=== PATIENT | female | born 1980 | race Two or more races ===

== ENCOUNTER 2017-04-16 21:29 | Emergency (ER) | payer MEDICAID ==
[~2017-04-16] VITALS: Ht 165.1 cm; Wt 88.7 kg
[~2017-04-16 21:29] MED LIST: DIPH25CA83 PO
[2017-04-16] MEDS ORDERED: DOXY100C43 PO (23:37)
[2017-04-16 23:50] VITALS: BP 144/74
== END 2017-04-16 23:52 | disposition home or self-care (01) ==
LOC: ER 21:29
DX: L03.116 Cellulitis of left lower limb (principal); F17.200 Nicotine dependence, unspecified, uncomplicated; Z79.899 Other long term (current) drug therapy
CPT/HCPCS: 93971; 99284

== ENCOUNTER 2017-07-04 14:08 | Emergency (ER) | payer OTHER, MEDICAID ==
[~2017-07-04] VITALS: Ht 165.1 cm; Wt 86.0 kg
[2017-07-04 15:00] VITALS: BP 120/62
== END 2017-07-04 15:25 | disposition home or self-care (01) ==
LOC: ER 14:08
DX: S39.012A Strain of muscle, fascia and tendon of lower back, initial encounter (principal); F17.200 Nicotine dependence, unspecified, uncomplicated; Z98.890 Other specified postprocedural states; V29.9XXA Motorcycle rider (driver) (passenger) injured in unspecified traffic accident, initial encounter; Y93.89 Activity, other specified; Y92.89 Other specified places as the place of occurrence of the external cause; Y99.8 Other external cause status
CPT/HCPCS: 72100; 99284

== ENCOUNTER 2017-12-09 23:02 | Emergency (ER) | payer MEDICAID ==
[~2017-12-09] VITALS: Ht 165.1 cm; Wt 76.0 kg
[~2017-12-09 23:02] MED LIST changes: +GUAI1TBM19 PO
[2017-12-09 23:44] LABS: BASOPHILS % (AUTO) 0.3 % (0-1); EOSINOPHILS # (AUTO) 0.2 X10'3 (0-0.9); EOSINOPHILS % (AUTO) 1.5 % (0-6); HEMATOCRIT 40.3 % (35.0-45.0); HEMOGLOBIN 13.2 g/dl (12.0-16.0); LYMPHOCYTES # (AUTO) 1.1 X10'3 (1.1-4.8); LYMPHOCYTES % (AUTO) 10.5 % (21-51); MEAN CORPUSCULAR HEMOGLOBIN 26.2 PG (27.0-31.0); MEAN CORPUSCULAR HGB CONC 32.6 % (33.0-36.5); MEAN CORPUSCULAR VOLUME 80.4 FL (78-98); MEAN PLATELET VOLUME 8.3 FL (7.4-10.4); MONOCYTES # (AUTO) 0.5 X10'3 (0-0.9); MONOCYTES % (AUTO) 4.6 % (2-12); NEUTROPHILS # (AUTO) 8.9 X10'3 (1.8-7.7); NEUTROPHILS % (AUTO) 83.1 % (42-75); PLATELET COUNT 254 X10'3 (140-440); RED BLOOD COUNT 5.02 X10'6 (4.20-5.60); RED CELL DISTRIBUTION WIDTH 14.1 % (11.5-14.5); WHITE BLOOD COUNT 10.8 X10'3 (4.5-11.0)
[2017-12-09 23:54] LABS: ALANINE AMINOTRANSFERASE 17 U/L (12-78); ALBUMIN 3.4 G/DL (3.4-5.0); ALBUMIN/GLOBULIN RATIO 0.8 (1.1-1.5); ALKALINE PHOSPHATASE 69 IU/L (46-116); ANION GAP 7 (8-16); ASPARTATE AMINO TRANSFERASE 13 U/L (10-37); BILIRUBIN,TOTAL 0.3 MG/DL (0.1-1.0); BLOOD UREA NITROGEN 16 MG/DL (7-18); CALCIUM 8.3 MG/DL (8.5-10.1); CHLORIDE 104 MMOL/L (99-107); CREATININE 0.89 MG/DL (0.40-0.90); GLUCOSE 106 MG/DL (70-104); POTASSIUM 3.9 MMOL/L (3.5-5.1); SODIUM 138 MMOL/L (135-145); TOTAL CARBON DIOXIDE 27.4 MMOL/L (24-32); TOTAL PROTEIN 7.5 G/DL (6.4-8.2); eGFR 71 ML/MIN
[2017-12-09 23:55] LABS: PROTHROMBIN TIME 9.9 SECONDS (9.0-12.0)
[2017-12-09] MEDS ORDERED: ondansetron/PF 4mg/2ml inj IV ONE (23:55)
[2017-12-09] MEDS ORDERED: morphine 4 MG/ML inj SYRINge IV PRN (23:55)
[2017-12-09] MEDS ORDERED: ketorolac trometh. 30mg/ml inj. IV ONE (23:55)
[2017-12-09] MEDS ORDERED: normal saline 1000ML IV soln IVB ONE (23:55)
[2017-12-10 00:27] LABS: LIPASE 102 U/L (73-393)
[2017-12-10] MEDS ORDERED: proCHLORperazine 10 MG/2 ml inj IV ONE (01:35)
[2017-12-10] MEDS ORDERED: morphine 4 MG/ML inj SYRINge IV PRN (01:35)
[2017-12-10] MEDS ORDERED: PROC-8 PO (02:09)
[2017-12-10 02:12] VITALS: BP 132/74
== END 2017-12-10 02:15 | disposition home or self-care (01) ==
LOC: ER 23:03
DX: R10.84 Generalized abdominal pain (principal); R11.2 Nausea with vomiting, unspecified; R19.7 Diarrhea, unspecified; Z79.899 Other long term (current) drug therapy
CPT/HCPCS: 36415; 80053; 83690; 85025; 85610; 96361; 96374; 96375; 99284; J0780; J1885; J2405; J7030; J2270

== ENCOUNTER 2023-05-09 21:38 | Emergency (ER) | payer MEDICAID ==
[~2023-05-09] VITALS: Ht 165.1 cm; Wt 84.1 kg
[~2023-05-09 21:38] MED LIST changes: +PROC-8 PO
[2023-05-09 21:45] VITALS: BP 161/110; PULSE 88; RESP 16; TEMP 98; O2SAT 98
[2023-05-09] MEDS ORDERED: MOXI3DRO25 RIGHTEYE (22:03)
== END 2023-05-09 22:13 | disposition home or self-care (01) ==
LOC: ER 21:39
DX: H10.9 Unspecified conjunctivitis (principal); H02.842 Edema of right lower eyelid
CPT/HCPCS: 99283

== ENCOUNTER 2023-07-26 05:56 | Emergency (ER) | payer MEDICAID, OTHER ==
[~2023-07-26] VITALS: Ht 160 cm; Wt 93.0 kg
[2023-07-26 06:08] VITALS: BP 205/87; PULSE 64; RESP 16; TEMP 98.3; O2SAT 100
[2023-07-26] MEDS ORDERED: CefTRIAXone 2gm/D5W 50ml BAG 50 ML IV ONE (07:55)
[2023-07-26] MEDS: acetaminophen 325mg tablet PO STA (08:18)
[2023-07-26] MEDS: dexamethasone 4mg tablet PO ONE (08:18)
[2023-07-26] MEDS: amox tr/potassium clavulanate 875/125mg TAB PO ONE (08:18)
[2023-07-26] MEDS ORDERED: AMOX-580 PO (08:20)
[2023-07-26] MEDS ORDERED: HYDR-3965 PO (08:20)
== END 2023-07-26 08:35 | disposition home or self-care (01) ==
LOC: ER 05:56
DX: K04.7 Periapical abscess without sinus (principal); K02.9 Dental caries, unspecified; K08.89 Other specified disorders of teeth and supporting structures; Z98.51 Tubal ligation status
CPT/HCPCS: 99284

== ENCOUNTER 2024-04-13 16:22 | Emergency (ER) | payer SELFPAY | END 2024-04-13 17:04 | disposition left against medical advice (07) | LOC: ER 16:23 | DX: H57.10 Ocular pain, unspecified eye (principal); Z53.21 Procedure and treatment not carried out due to patient leaving prior to being seen by health care provider ==

== ENCOUNTER 2024-04-13 20:20 | Emergency (ER) | payer SELFPAY ==
[~2024-04-13] VITALS: Ht 165.1 cm; Wt 82.8 kg
[2024-04-13 20:38] VITALS: BP 198/95; PULSE 84; RESP 18; TEMP 98.4; O2SAT 99
== END 2024-04-13 21:44 | disposition left against medical advice (07) ==
LOC: ER 20:20
DX: H57.13 Ocular pain, bilateral (principal); Z53.21 Procedure and treatment not carried out due to patient leaving prior to being seen by health care provider

== ENCOUNTER 2024-05-18 13:26 | Emergency (ER) | payer SELFPAY ==
[~2024-05-18] VITALS: Ht 165.1 cm; Wt 86.4 kg
[2024-05-18 13:28] VITALS: PULSE 79
[2024-05-18 14:01] VITALS: BP 193/97; RESP 16; TEMP 97.7; O2SAT 97
[2024-05-18] MEDS ORDERED: AMOX-117 PO (14:50)
== END 2024-05-18 15:22 | disposition home or self-care (01) ==
LOC: ER 13:26
DX: K04.7 Periapical abscess without sinus (principal); I10 Essential (primary) hypertension; Z98.51 Tubal ligation status; Z98.890 Other specified postprocedural states
CPT/HCPCS: 99283

== ENCOUNTER 2024-08-13 19:16 | Emergency (ER) | payer SELFPAY ==
[~2024-08-13] VITALS: Ht 162.6 cm; Wt 87.0 kg
--- NOTE | 2024-08-13 19:19 | Physician Documentation ---
History of Present Illness ~ Stated Complaint: GEN ILLNESS Time Seen by MD: 19:18 Primary Medical Doctor: NO PCP Source: patient, EMS, EMS notes reviewed Mode of Arrival: EMS Exam Limitations: no limitations HPI Chief Complaint: Nausea vomiting and abdominal pain Caveat: None Independent Historians: Paramedics History of Present Illness: Patient is a 44-year-old woman who complains of sudden nausea vomiting abdominal pain that began 1 hour prior to arrival. This occurred shortly after taking a small amount of methamphetamine. However the patient states that "it was only a flake out of an old bowl". Patient appears anxious. Patient denies any fever. Patient denies any medical problems. Review of systems: All systems were reviewed and are negative except for what is indicated in the history of present illness. Past Medical History: None per patient Past Surgical History: , tubal ligation Social History: Occasional alcohol use, methamphetamine use Medications: Reviewed as documented Nursing Notes Allergies: Reviewed as documented in Nursing Notes Medication Reconciliation Allergies: Coded Allergies: No Known Allergies (Unverified , 08/13/24) Scheduled Diphenhydramine Hcl (Benadryl), 1 CAP PO TID Guaifenesin/Dextromethorphan (Mucinex Dm ER 1,200-60 mg Tab), 1 TAB PO Q12H Scheduled PRN Prochlorperazine Maleate (Compazine), 1 TAB PO Q8HPRN PRN for nausea Past Medical History Past Medical History: No Pertinent History Past Surgical History: , tubal ligation Alcohol Use: Occasionally Drug Use: none Lives with: Spouse Lives In: Home Review of Systems All Other Systems at this time: Reviewed and Negative ROS Patient denies any other acute symptoms other than above. All other systems are negative Physical Exam Vital Signs: RN Vital Signs have been reviewed: Yes Pulse Oximetry Reflects: adequate oxygenation Physical Exam General Appearance: Mild distress, anxious appearing HEENT: Normal OP, moist oral mucosa, PERRL, EOMI Neck: supple, normal ROM, trachea midline Pulmonary: No respiratory distress, CTA, BS equal Cardiac: RRR, no murmur, rub or gallop, GI: nondistended, soft, nontender, normal bowel sounds, no guarding, no rebound Extremities: normal ROM, no swelling, non-tender Skin: intact, dry, warm, no rashes Neuro: AAOx3, speech is clear, no focal motor weakness Psych: Anxious appearing, good eye contact, no apparent hallucination, normal speech Progress Results/Orders Results/Orders Orders - BILL MCCURDY MD Chest,Single View (08/13/24 19:39) Monitor (08/13/24 19:17) Saline Lock (08/13/24 19:17) Oxygen (08/13/24 19:17) Drug Screen, Urine (08/13/24 19:17) Urinalysis, Cult If Indicated (08/13/24 19:19) Electrocardiogram (08/13/24 19:19) Completed Orders - BILL MCCURDY MD Chest,Single View (08/13/24 19:39) Cbc/Diff (08/13/24 19:17) BMP (08/13/24 19:17) Electrocardiogram (08/13/24 19:17) Ethanol (08/13/24 19:17) Lipase (08/13/24 19:19) Ondansetron Inj. (Zofran 4mg/2ml Vial) (08/13/24 19:20) Normal Saline 1000ml (Sodium Chloride 10 (08/13/24 19:20) Clonidine Tablet (Catapres Tablet) (08/13/24 20:35) Medications Received in ER Medications (Trade) Dose Ordered Sig/Davide Route PRN Reason Start Time Stop Time Status Last Admin Dose Admin (Zofran 4mg/2ml vial) 4 mg ONCE ONCE IV 08/13/24 19:20 08/13/24 19:29 DC 08/13/24 19:40 4 MG (sodium chloride 1000ml IV soln) 1,000 ml ONCE ONCE IVB 08/13/24 19:20 08/13/24 19:21 DC 08/13/24 19:40 1,000 ML (Catapres tablet) 0.2 mg NOW ONCE PO 08/13/24 20:35 08/13/24 20:36 DC 08/13/24 20:42 0.2 MG Vital Signs 08/13/24 08/13/24 08/13/24 19:18 19:24 20:13 Temp 98.5 Pulse 55 56 Resp 16 16 20 B/P (MAP) 200/105 208/100 (136) Pulse Ox 99 98 O2 Flow Rate 0 Laboratory Tests Test 6/16/25 19:36 White Blood Count 11.5 H Red Blood Count 4.73 Hemoglobin 11.9 L Hematocrit 37.0 Mean Corpuscular Volume 78.1 Mean Corpuscular Hemoglobin 25.2 L Mean Corpuscular Hemoglobin Concent 32.3 L Red Cell Distribution Width 17.5 H Platelet Count 274 Mean Platelet Volume 7.7 Neutrophils (%) (Auto) 84.4 H Lymphocytes (%) (Auto) 8.9 L Monocytes (%) (Auto) 5.7 Eosinophils (%) (Auto) 0.7 Basophils (%) (Auto) 0.3 Neutrophils # (Auto) 9.7 H Lymphocytes # (Auto) 1.0 L Monocytes # (Auto) 0.7 Eosinophils # (Auto) 0.1 Basophils # (Auto) 0.0 CBC Comment Sodium Level 142 Potassium Level 4.2 Chloride Level 106 Carbon Dioxide Level 28.5 Anion Gap 8 Blood Urea Nitrogen 17 Creatinine 0.88 Estimated GFR/1.73 m2 69 BUN/Creatinine Ratio 19.3 Glucose Level 93 Calcium Level 8.5 Albumin 3.2 L Lipase 29 Chemistry Comments Ethyl Alcohol Level < 10 Medical Decision Making Findings Differential diagnosis includes but is not limited to: Anxiety, methamphetamine use, hypertensive urgency, hypertensive emergency, meth induced hypertension, gastritis, cholecystitis, pancreatitis, choledocholithiasis, peptic ulcer, gastric ulcer, duodenitis, appendicitis EKG independent interpretation: Performed at 7:19 p.m.. Sinus bradycardia, heart rate 54, normal axis, normal ST segments Chest x-ray, single view, indication: Hypertension Independent interpretation: Lungs are clear, normal mediastinum, normal cardiac silhouette Laboratory data independent interpretation: CBC: Unremarkable CMP: Unremarkable Emergency department course/medical decision-making: Patient presents with son nausea vomiting abdominal pain that appears to have resolved. The patient use some methamphetamine then became ill and then got very anxious and called 911. Patient is observed here in his found to be hypertensive. Patient is given clonidine 0.2 mg. There was no evidence of acute end-organ damage. No evidence of hypertensive emergency. Patient's lab work is unremarkable. Test results and treatment plan reviewed with the patient. Patient is stable for discharge. Patient was suspicion for acute coronary syndrome. There is no evidence of congestive heart failure. No evidence of intra-abdominal infection. Patient's abdominal exam is unremarkable. Departure Time of Disposition: 21:45 Impression: Primary Impression: Abdominal pain Qualified Codes: R10.84 - Generalized abdominal pain Additional Impressions: Nausea and vomiting Qualified Codes: R11.2 - Nausea with vomiting, unspecified Methamphetamine use Hypertension resolved Condition: Improved Discharge Instructions: Hypertension, Adult, [id number] Additional Instructions: MONITOR YOUR BLOOD PRESSURE AT HOME. FOLLOW UP WITH YOUR PRIMARY CARE DOCTOR FOR EVALUATION. Education Educated: Patient Educated regarding: diagnosis, treatment, need for follow up Signature Scribe Signature: No scribe Attestation: No scribe BILL MCCURDY MD Aug 13, 2024 19:19
--- NOTE | 2024-08-13 19:22 | ELECTROCARDIOGRAPH REPORT ---
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
[2024-08-13] MEDS: ondansetron/PF 4mg/2ml inj IV ONE (19:40)
[2024-08-13] MEDS: normal saline 1000ML IV soln IVB ONE (19:40)
[2024-08-13 19:43] LABS: BASOPHILS % (AUTO) 0.3 % (0-1); EOSINOPHILS # (AUTO) 0.1 X10'3 (0-0.9); EOSINOPHILS % (AUTO) 0.7 % (0-6); HEMOGLOBIN 11.9 g/dl (12.0-16.0); LYMPHOCYTES % (AUTO) 8.9 % (21-51); MEAN CORPUSCULAR HEMOGLOBIN 25.2 PG (27.0-31.0); MEAN CORPUSCULAR HGB CONC 32.3 g/dL (33.0-36.5); MEAN CORPUSCULAR VOLUME 78.1 FL (78-98); MEAN PLATELET VOLUME 7.7 FL (7.4-10.4); MONOCYTES # (AUTO) 0.7 X10'3 (0-0.9); MONOCYTES % (AUTO) 5.7 % (2-12); NEUTROPHILS # (AUTO) 9.7 X10'3 (1.8-7.7); NEUTROPHILS % (AUTO) 84.4 % (42-75); PLATELET COUNT 274 X10'3 (140-440); RED BLOOD COUNT 4.73 X10'6 (4.20-5.60); RED CELL DISTRIBUTION WIDTH 17.5 % (11.5-14.5); WHITE BLOOD COUNT 11.5 X10'3 (4.5-11.0)
[2024-08-13 19:55] LABS: ALBUMIN 3.2 G/DL (3.4-5.0); ANION GAP 8 (8-16); BLOOD UREA NITROGEN 17 MG/DL (7-18); BUN/CREATININE RATIO 19.3 (10.0-20.0); CALCIUM 8.5 MG/DL (8.5-10.1); CHLORIDE 106 MMOL/L (99-107); CREATININE 0.88 MG/DL (0.40-0.90); ETHANOL < 10 MG/DL (<10); GLUCOSE 93 MG/DL (70-104); LIPASE 29 U/L (16-77); POTASSIUM 4.2 MMOL/L (3.5-5.1); SODIUM 142 MMOL/L (135-145); TOTAL CARBON DIOXIDE 28.5 MMOL/L (24-32); eCRCL 70 ML/MIN; eGFR 69 ML/MIN
--- NOTE | 2024-08-13 20:07 | RADIOLOGY REPORT ---
CHEST RADIOGRAPH Indication: CP Technique: Single frontal view of the chest was obtained Comparison: None FINDINGS: Lines and Tubes: None Lungs: No focal consolidation. Pleura: No effusion. No pneumothorax. Cardiomediastinal contours: Unremarkable Bones: No acute osseous abnormality. IMPRESSION: Cardiomegaly with CHF
[2024-08-13] MEDS: cloNIDine 0.1 mg tablet PO ONE (20:42)
[2024-08-13 21:52] VITALS: BP 176/87; PULSE 66; RESP 20; TEMP 98.1; O2SAT 98
== END 2024-08-13 22:31 | disposition home or self-care (01) ==
LOC: ER 19:16
DX: R10.9 Unspecified abdominal pain (principal); R11.2 Nausea with vomiting, unspecified; F15.90 Other stimulant use, unspecified, uncomplicated; Z98.51 Tubal ligation status; Z79.899 Other long term (current) drug therapy; Z72.89 Other problems related to lifestyle
CPT/HCPCS: 71045; 80048; 80320; 83690; 85025; 93005; 96361; 96374; 99285; J2405; J7030

== ENCOUNTER 2024-11-14 15:50 | Emergency (ER) | payer OTHER ==
[~2024-11-14] VITALS: Ht 162.6 cm; Wt 74.9 kg
[2024-11-14 15:57] VITALS: BP 156/79; PULSE 92; RESP 18; O2SAT 100
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
[2024-11-14] MEDS: LIDOcaine 1% W/epiNEPHrine 1:100,000 20ml vial SQ STA (16:56)
[2024-11-14] MEDS: bacitracin 15gm ointment TP STA (18:13)
[2024-11-14] MEDS: TETanus/Pertussis (Acell)/Diphther VAC/PF (Tdap-Adult) 0.5ml syringe IMVAC ONE (18:13)
[2024-11-14 18:23] VITALS: TEMP 96.9
== END 2024-11-14 18:26 | disposition home or self-care (01) ==
LOC: ER 15:50
DX: S51.811A Laceration without foreign body of right forearm, initial encounter (principal); Z98.51 Tubal ligation status; V29.31XA Electric (assisted) bicycle (driver) (passenger) injured in unspecified nontraffic accident, initial encounter; Y93.89 Activity, other specified; Y92.89 Other specified places as the place of occurrence of the external cause; Y99.8 Other external cause status
CPT/HCPCS: 12005; 90471; 90715; 99284; A6223; J7030; A6258; A6449

== ENCOUNTER 2024-12-11 19:15 | Emergency (ER) | payer SELFPAY ==
[~2024-12-11] VITALS: Ht 165.1 cm; Wt 74.0 kg
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
--- NOTE | 2024-12-11 20:11 | RADIOLOGY REPORT ---
EXAM: CT CT CERVICAL SPINE INDICATION: trauma EXAM DATE: 12/11/2024 07:40 PM COMPARISON: None TECHNIQUE: Multiple axial CT images of the cervical spine were obtained using bone algorithm. Axial and coronal reformatting was done. Bone and soft tissue windows were reviewed. Radiation Dose Information: CT Dose: CTDI volume is 22.79 mGy. Dose-length product is 583.09 mGy*cm FINDINGS: The cervical alignment is intact. No acute cervical spine fracture is identified. The vertebral body heights are intact. No suspicious osseous lesions are identified. No significant degenerative changes are identified. There is no prevertebral soft tissue swelling. Partially imaged focus of air over the right submandibular region. IMPRESSION: No evidence of acute cervical spine fracture or traumatic malalignment. All CT scans at this medical facility are performed using dose modulation techniques as appropriate to a performed exam including the following: Automated exposure control was utilized; adjustment of the MA and/or KV according to patient size; and use of iterative reconstruction technique.
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
--- NOTE | 2024-12-11 20:27 | RADIOLOGY REPORT ---
CLINICAL HISTORY: trauma TECHNIQUE: Helical imaging carried out from skull base to vertex without intravenous contrast. This exam was performed according to our departmental dose optimization program. Up-to-date CT equipment and radiation dose reduction techniques are utilized as appropriate. CTDIVol: 52.06 mGy DLP: 1060.58 mGy-cm WID: COMPARISON: CT CT FACIAL BONES/SOFT TISSUE on DOS: 12/11/24 FINDINGS: Small right periorbital soft tissue contusion. The ventricles and subarachnoid spaces are normal in size and configuration. There is no midline shift or mass effect. The chang white matter interfaces are maintained. The basal cisterns are patent. There is no evidence of acute intracranial hemorrhage or extra-axial fluid collection. The mastoid air cells and visualized paranasal sinuses are well-aerated aside from mild mucosal thickening of the left sphenoid sinus. IMPRESSION: 1. No acute intracranial abnormality. 2. Small right periorbital soft tissue contusion.
[2024-12-11] MEDS: HYDROcodone/acetaminophen 5mg/325mg tablet PO ONE (20:32)
[2024-12-11] MEDS: ondansetron 4mg rapidly disintigrating tab PO ONE (20:32)
[2024-12-11] MEDS: LIDOcaine/PRILOcaine 5gm cream TP ONE (21:12)
[2024-12-11] MEDS: bacitracin 15gm ointment TP ONE (21:12)
[2024-12-11 22:45] VITALS: BP 181/86; PULSE 80; RESP 14; TEMP 98.7; O2SAT 98
== END 2024-12-11 22:47 | disposition home or self-care (01) ==
LOC: ER 19:16
DX: S06.0XAA Concussion with loss of consciousness status unknown, initial encounter (principal); Z98.51 Tubal ligation status; Z79.899 Other long term (current) drug therapy; Z72.89 Other problems related to lifestyle; Z98.890 Other specified postprocedural states; V18.4XXA Pedal cycle driver injured in noncollision transport accident in traffic accident, initial encounter; Y93.55 Activity, bike riding; Y92.89 Other specified places as the place of occurrence of the external cause; Y99.8 Other external cause status
CPT/HCPCS: 70450; 70486; 72125; 99285; J7030; A6449